=== PATIENT | male | born 1990 | race Two or more races ===

== ENCOUNTER 2025-06-20 15:14 | Emergency (ER) | payer MEDICAID, SELFPAY ==
[2025-06-20 15:15] VITALS: BMI 30.8
[2025-06-20 15:23] VITALS: BP 145/84; PULSE 76; RESP 18; TEMP 36.5; O2SAT 97
--- NOTE | 2025-06-20 15:29 | EDNOTE_ITS ---
<Statement entered by Mili Saavedra MD - 07/02/25 14:17> As co-signing physician, I was present and available for consult prn. I concur with the plan and care as documented by the midlevel provider. ED Animal Bite RME/HPI General Chief Complaint: Animal Bite Stated Complaint: BITE BY RODENT TO RT MIDDLE FINGER Time Seen by Provider: 06/20/25 15:19 Source: patient, RN notes reviewed and old records reviewed Arrival date/time: 06/20/25 15:14 Mode of arrival: ambulatory Limitations: no limitations RME / HPI RME / HPI narrative: 34yom presents to ED for squirrel bite that occurred yesterday. Patient picked up the squirrel to take out from his garage and it bit his right middle finger. Patient has cleaned wound with antiseptic, peroxide and water. No joint pain/swelling or wound swelling/drainage reported. Tenderness vacc utd. Related Data Previous Rx's ?Medication ?Instructions ?Recorded amoxicillin 875 mg-potassium 1 tab PO BID 7 days #14 t abs 06/20/25 clavulanate 125 mg tablet Allergies Allergy/AdvReac Type Severity Reaction Status Date / Time No Known Allergies Allergy Verified 06/20/25 15:17 Review of Systems Review of Systems Systems Reviewed: All systems reviewed, normal except as documented Musculoskeletal Musculoskeletal: Denies arthralgias and Denies joint swelling Integumentary/Breasts Comments: Reports puncture wound Past Medical History Surgical History OTHER SURGICAL HX: LLE Ortho surgery Social History SMOKING STATUS: Never smoker SUBSTANCE USE: does not use ALCOHOL: Never Past Medical History Comments PMH COMMENT: Denies past medical history ED Exam General Limitations: Present no limitations General appearance: Present alert and in no apparent distress Head Head exam: Present atraumatic and normocephalic Eye Eye exam: Present normal appearance, PERRL and EOMI ENT ENT exam: Present normal exam and mucous membranes moist Neck Neck exam: Present normal inspection and full ROM Chest Chest inspection: Present normal inspection and symmetric chest wall rise Respiratory Respiratory exam: Present normal lung sounds bilaterally; Absent respiratory distress Cardiovascular Cardiovascular exam: Present regular rate and normal rhythm Extremities Exam Extremities exam: Present normal inspection, full ROM and normal capillary refill; Absent tenderness or joint swelling Neurological Exam Neurological exam: Present alert and oriented X3 Psychiatric Psychiatric exam: Present normal affect and normal mood Skin Skin exam: Present other (Single puncture wound to right middle finger with faint surrounding erythema. No swelling or drainage) Course Quality Measures none Vital Signs Vital signs: Vital Signs Temperature 97.7 F 06/20/25 15:23 Pulse Rate 76 06/20/25 15:23 Respiratory Rate 18 06/20/25 15:23 Blood Pressure 145/84 H 06/20/25 15:23 Pulse Oximetry (%) 97 06/20/25 15:23 Oxygen Delivery Method Room Air 06/20/25 15:23 Animal Bite MDM Narrative MDM Narrative:: 34yom presents to ED for squirrel bite that occurred yesterday. Patient picked up the squirrel to take out from his garage and it bit his right middle finger. Patient has cleaned wound with antiseptic, peroxide and water. No joint pain/swelling or wound swelling/drainage reported. Tenderness vacc utd. Will DC home with Augmentin for prophylaxis. Home wound care discussed. Stable for discharge, RTED precautions given. Patient data External records reviewed:: [facility] previous records (04/13/2024 ED visit for medical clearance) Clinical information provided by:: patient Social determinants that could affect healthcare access:: other (specify) (Poor access to healthcare) Patient has the following chronic illnesses:: None How is presenting disease/condition affected by chronic disease/condition?: no chronic disease Evaluation data The following diagnostics were reviewed and interpreted by me:: other (specify) (None) Lab and/or radiology exams considered but not ordered:: Finger x-rays: Do not suspect fracture or FB Interpretation Summary: na Medications / Prescriptions Medications or Prescriptions considered but not ordered:: None Medication administrations:: None Consultations Consultation(s) initiated? (list below): No Diagnosis Differential diagnosis animal bite: bite by animal and other (Laceration, abrasion, avulsion, puncture wound, cellulitis, abscess) Most likely diagnosis given after review of the tests above:: Scrotal bite, puncture wound Admission Indicated Admission indicated?: not indicated Admission Request Was there a request for admission?: No Disposition Plan Disposition Plan: Discharge Discharge Attestation Discharge Attestation: The patient and all family members were given an opportunity to ask questions and understood the discharge instructions. Discharge instructions specifically effects, indications for sooner follow up or return to the emergency department, and the expected course of current diagnosis. Patient condition: Stable Discharge Plan Plan Patient Disposition: HOME (Self Care) Patient condition on transfer: Stable Prescriptions/Referrals Prescriptions/Med Rec: New amoxicillin-pot clavulanate 875-125 mg tablet 1 tab PO BID 7 Days Qty: 14 0RF Problem List Clinical Impression: Bitten by squirrel, Puncture wound of right middle finger Patient/Caregiver Discharge Instructions Print Language: Yakut Stand Alone Forms: Carline Award Info., Patient Portal Info Letter PA/ORDER CLERK Supervising Physician PA/ORDER CLERK Supervising Physician: Keri
== END 2025-06-20 16:36 | disposition home or self-care (01) ==
PROVIDERS: Emergency Provider Emergency Medicine
DX: S61.232A Puncture wound without foreign body of right middle finger without damage to nail, initial encounter (principal); W53.21XA Bitten by squirrel, initial encounter
CPT/HCPCS: 99281